=== PATIENT | male | born 1950 | race Caucasian/White ===

== ENCOUNTER 2016-09-07 12:03 | Emergency (ER) | payer MEDICARE, BC ==
[2016-09-07 12:27] VITALS: TEMP 97
--- NOTE | 2016-09-07 12:43 | RAD ---
EXAM DESCRIPTION: Abdomen Series CLINICAL HISTORY: 66 years, Male, epigastric pain 3 days COMPARISON: None. FINDINGS: Frontal view the chest shows slightly shallow inspiration. No consolidation. Borderline heart size. No free air under right hemidiaphragm. Nonspecific bowel gas without distention. Moderate stool mid colon. IMPRESSION: Nonspecific bowel gas pattern without findings of obstruction. Moderate stool in the mid colon Electronically signed by: Luís Lord MD 09/07/2016 12:42 PM CDT
[2016-09-07] MEDS ORDERED: MAGNESIUM SULFATE PREMIX 2GM 2 GM in PREMIX BAG 1 BAG IVPB ONE (12:57)
[2016-09-07] MEDS ORDERED: POTASSIUM CHLORIDE ELIXIR 20 MEQ/15 ML UD PO ONE (12:57)
[2016-09-07] MEDS ORDERED: MAGNESIUM SULFATE PREMIX 2GM 50 ML IVPB ONE (13:11)
--- NOTE | 2016-09-07 13:28 | ED.PDOC ---
History of Present Illness - General Chief Complaint: GI Problem Stated Complaint: "gallbladder pain" Time Seen by Provider: 09/07/16 12:21 Source: patient Exam Limitations: no limitations - History of Present Illness Initial Comments: the patient is a 66-year-old male presenting to the emergency room secondary to diffuse abdominal pain in the upper abdomen. No rebound or peritoneal signs. No nausea or vomiting. No diarrhea. No fever. No back pain. No syncope or near syncope. He has had constipation problems in the past. He is also recently had some mild hypokalemia. Severity: mild Improving Factors: nothing Worsening Factors: nothing Associated Symptoms: denies symptoms Allergies/Adverse Reactions: Allergies NO KNOWN ALLERGY Allergy (Unverified 09/07/16 12:19) Home Medications: Ambulatory Orders Azilsartan Medoxomil-Chlorthal [Edarbyclor] 1 tab PO DAILY 06/15/14 Esomeprazole Magnesium [Nexium] 40 mg PO DAILY 06/15/14 Glyburide 5 mg PO DAILY 06/15/14 Metoprolol Succinate [Toprol XL] 50 mg PO DAILY 06/15/14 Ramipril [Altace] 10 mg PO DAILY 06/15/14 Saxagliptin-Metformin HCl [Kombiglyze Xr] 1 tab PO BEDTIME 06/15/14 Simvastatin [Zocor] 80 mg PO BEDTIME 06/15/14 Review of Systems - Review of Systems Constitutional: States: no symptoms reported EENTM: States: no symptoms reported Respiratory: States: no symptoms reported Cardiology: States: no symptoms reported Gastrointestinal/Abdominal: States: see HPI Genitourinary: States: no symptoms reported Musculoskeletal: States: no symptoms reported Skin: States: no symptoms reported Neurological: States: no symptoms reported Endocrine: States: no symptoms reported All other Systems: No Change from Baseline Past Medical History (General) - Patient Medical History Hx Seizures: No Hx Stroke: No Hx Dementia: No Hx Asthma: No Hx of COPD: No Hx Cardiac Disorders: No Hx Congestive Heart Failure: No Hx Pacemaker: No Hx Hypertension: Yes Hx Thyroid Disease: No Hx Diabetes: Yes Hx Gastroesophageal Reflux: No Hx Renal Disease: No Hx Cancer: No Hx of HIV: No Hx Hepatitis C: No Hx MRSA: No Surgical History: no surgical history - Vaccination History Hx Tetanus, Diphtheria Vaccination: Yes Hx Influenza Vaccination: Yes Hx Pneumococcal Vaccination: Yes Immunizations Up to Date: Yes - Social History Hx Tobacco Use: No Hx Chewing Tobacco Use: No Hx Alcohol Use: No Hx Substance Use: No Hx Substance Use Treatment: No Hx Depression: No Feels Threatened In Home Enviroment: No Feels Threatened In a Relationship: No Hx Physical Abuse: No Hx Emotional Abuse: No Hx Suspected Abuse: No - Female History Patient is a Female of Child Bearing Age (10 -59 yrs old): No Patient : No Family Medical History - Family History Mother Family History: No Known Living Status: Unknown Physical Exam - Physical Exam General Appearance: Alert, Comfortable, No apparent distress Eye Exam: bilateral normal Ears, Nose, Throat: hearing grossly normal, normal ENT inspection, normal pharynx Neck: non-tender, full range of motion, supple Respiratory: chest non-tender, lungs clear, normal breath sounds, no respiratory distress, no accessory muscle use Cardiovascular/Chest: normal peripheral pulses, regular rate, rhythm, no edema Peripheral Pulses: radial,right: 2+, radial,left: 2+, dorsalis pedis,right: 2+, dorsalis pedis,left: 2+ Gastrointestinal/Abdominal: normal bowel sounds, non tender, soft Rectal Exam: deferred Back Exam: normal inspection, no CVA tenderness, no vertebral tenderness Extremity: normal range of motion, non-tender, normal inspection, no calf tenderness, normal capillary refill, pedal edema - trace to bilateral lower extremities Neurologic: want ad supervisor II-XII nml as tested, alert, normal mood/affect, oriented x 3 Skin Exam: normal color Comments: Laboratory Tests 09/07/16 09/07/16 09/07/16 12:25 12:25 12:25 WBC 11.7 H RBC 5.26 Hgb 15.1 Hct 44.1 MCV 83.8 MCH 28.6 MCHC 34.2 RDW 13.8 Plt Count 199 MPV 8.5 Absolute Neuts (auto) 7.60 H Absolute Lymphs (auto) 3.50 H Absolute Monos (auto) 0.50 Absolute Eos (auto) 0.10 Absolute Basos (auto) 0.10 Neutrophils % 64.6 Lymphocytes % 29.7 Monocytes % 4.5 Eosinophils % 0.6 L Basophils % 0.6 PT 12.3 INR 1.090 PTT (SP) 30.8 Sodium 135 Potassium 3.4 L Chloride 95 L Carbon Dioxide 29 Anion Gap 14.4 BUN 14 Creatinine 0.62 BUN/Creatinine Ratio 22.6 H Random Glucose 244 H Serum Osmolality 278.7 Calcium 9.0 Magnesium 1.5 L Total Bilirubin 0.9 AST 34 ALT 32 Alkaline Phosphatase 58 Creatine Kinase 67 CK-MB (CK-2) 1.1 CK-MB (CK-2) % Not Reportable Troponin I < 0.02 B-Natriuretic Peptide 21.0 Serum Total Protein 7.2 Albumin 3.8 Globulin 3.4 Albumin/Globulin Ratio 1.1 Amylase 37 Lipase 23 Urine Color Urine Appearance Urine pH Ur Specific [place] Urine Protein Urine Glucose (UA) Urine Ketones Urine Blood Urine Nitrite Urine Bilirubin Urine Urobilinogen Ur Leukocyte Esterase Urine RBC Urine WBC Ur Epithelial Cells Amorphous Sediment Urine Bacteria 09/07/16 12:35 WBC RBC Hgb Hct MCV MCH MCHC RDW Plt Count MPV Absolute Neuts (auto) Absolute Lymphs (auto) Absolute Monos (auto) Absolute Eos (auto) Absolute Basos (auto) Neutrophils % Lymphocytes % Monocytes % Eosinophils % Basophils % PT INR PTT (SP) Sodium Potassium Chloride Carbon Dioxide Anion Gap BUN Creatinine BUN/Creatinine Ratio Random Glucose Serum Osmolality Calcium Magnesium Total Bilirubin AST ALT Alkaline Phosphatase Creatine Kinase CK-MB (CK-2) CK-MB (CK-2) % Troponin I B-Natriuretic Peptide Serum Total Protein Albumin Globulin Albumin/Globulin Ratio Amylase Lipase Urine Color Yellow Urine Appearance Clear Urine pH 5.5 Ur Specific [place] 1.010 Urine Protein Negative Urine Glucose (UA) 100 H Urine Ketones Negative Urine Blood Negative Urine Nitrite Negative Urine Bilirubin Negative Urine Urobilinogen 0.2 Ur Leukocyte Esterase Negative Urine RBC 0 Urine WBC 0 Ur Epithelial Cells 0 Amorphous Sediment 1+ Urine Bacteria 0 acute abdominal series shows no acute pathology aside from some constipation Progress - Progress Progress: 09/07/16 13:28 the patient is a 66-year-old male presenting with several days of abdominal pain that appears to be most likely due to constipation. He needs to take a dose of milk of magnesia when he gets home tonight. He has some mild hypomagnesemia and received 2 g of magnesium here today. Additionally he has mild hypokalemia and received a dose of oral potassium here today. He needs to have these labs repeated in about 2 weeks. He needs to follow-up with his primary care doctor around that time. ER warnings were given for any worsening. He needs to increase his fluid intake. - Results/Orders Results/Orders: Vital Signs - 24 hr 09/07/16 09/07/16 12:19 13:23 Temperature 97 F L Pulse Rate [ 58 L 50 L Left Radial] Respiratory 18 18 Rate Blood Pressure 175/88 148/88 [Left Arm] O2 Sat by Pulse 99 Oximetry Departure - Departure Clinical Impression: Hypokalemia, Hypomagnesemia Constipation Qualifiers: Constipation type: unspecified constipation type Qualified Code(s): K59.00 - Constipation, unspecified Disposition: Discharge to Home or Self Care Condition: Fair Departure Forms: ED Discharge - Pt. Copy, Patient Portal Self Enrollment Instructions: DI for Constipation, DI for Hypokalemia Diet: diabetic diet Activity: increase activity as tolerated Referrals: Deshawn Bolton III, MD [Primary Care Provider] - 1-2 Weeks Home Medications: Ambulatory Orders Azilsartan Medoxomil-Chlorthal [Edarbyclor] 1 tab PO DAILY 06/15/14 Esomeprazole Magnesium [Nexium] 40 mg PO DAILY 06/15/14 Glyburide 5 mg PO DAILY 06/15/14 Metoprolol Succinate [Toprol XL] 50 mg PO DAILY 06/15/14 Ramipril [Altace] 10 mg PO DAILY 06/15/14 Saxagliptin-Metformin HCl [Kombiglyze Xr] 1 tab PO BEDTIME 06/15/14 Simvastatin [Zocor] 80 mg PO BEDTIME 06/15/14 Additional Instructions: the patient is a 66-year-old male presenting with several days of abdominal pain that appears to be most likely due to constipation. He needs to take a dose of milk of magnesia when he gets home tonight. He has some mild hypomagnesemia and received 2 g of magnesium here today. Additionally he has mild hypokalemia and received a dose of oral potassium here today. He needs to have these labs repeated in about 2 weeks. He needs to follow-up with his primary care doctor around that time. ER warnings were given for any worsening. He needs to increase his fluid intake. If hypokalemia persists, then he may need to discontinue one of his pressure medications.
[2016-09-07 14:13] VITALS: BP 150/76; O2SAT 96
== END 2016-09-07 14:13 | disposition home or self-care (01) ==
LOC: ER 12:03
DX: K59.00 Constipation, unspecified (principal); E87.6 Hypokalemia; E83.42 Hypomagnesemia; I10 Essential (primary) hypertension; E11.9 Type 2 diabetes mellitus without complications; Z79.899 Other long term (current) drug therapy
CPT/HCPCS: 36415; 74020; 80053; 81001; 82150; 82550; 82553; 83690; 83735; 83880; 84484; 85025; 85610; 85730; J3475

== ENCOUNTER → 2016-09-15 | Outpatient (CLI) | payer MEDICARE, BC | LOC: GMAL 10:39 | PROVIDERS: ATTEND Family Medicine | DX: E83.42 Hypomagnesemia (principal) ==

== ENCOUNTER → 2016-10-15 | Outpatient (CLI) | payer MEDICARE, BC | END | disposition home or self-care (01) | LOC: GMAL 10:43 | PROVIDERS: ATTEND Family Medicine | DX: E55.9 Vitamin D deficiency, unspecified (principal); E83.42 Hypomagnesemia ==

== ENCOUNTER → 2017-03-23 | Outpatient (CLI) | payer MEDICARE | END | disposition home or self-care (01) | LOC: GMAL 10:44 | PROVIDERS: ATTEND Family Medicine | DX: Z12.5 Encounter for screening for malignant neoplasm of prostate (principal); E55.9 Vitamin D deficiency, unspecified | CPT/HCPCS: 82306; G0103 ==

== ENCOUNTER → 2017-09-15 | Outpatient (CLI) | payer MEDICARE | LOC: GMAL 10:46 | PROVIDERS: ATTEND Family Medicine | DX: D51.3 Other dietary vitamin B12 deficiency anemia (principal); E83.42 Hypomagnesemia ==

== ENCOUNTER → 2017-11-16 | Outpatient (CLI) | payer MEDICARE | LOC: GMAL 14:14 | PROVIDERS: ATTEND Family Medicine | DX: E87.6 Hypokalemia (principal) ==

== ENCOUNTER → 2018-01-27 | Outpatient (CLI) | payer MEDICARE | LOC: GMAL 11:20 | PROVIDERS: ATTEND Family Medicine | DX: E83.42 Hypomagnesemia (principal) ==

== ENCOUNTER → 2018-05-18 | Outpatient (CLI) | payer MEDICARE | LOC: GMAL 10:45 | PROVIDERS: ATTEND Family Medicine | DX: Z12.5 Encounter for screening for malignant neoplasm of prostate (principal) ==

== ENCOUNTER 2019-10-05 17:18 | Emergency (ER) | payer MEDICARE ==
--- NOTE | 2019-10-05 17:59 | RAD ---
EXAM: XR Abdomen, 2 Views CLINICAL HISTORY: ruq pain, intermittent 3 days TECHNIQUE: Frontal view of the abdomen/pelvis with upright view of the abdomen. COMPARISON: No relevant prior studies available. FINDINGS: Intraperitoneal space: No free air. Gastrointestinal tract: Moderate diffuse colonic stool. No distention. Bones/joints: Degenerative changes present in the spine. IMPRESSION: No acute findings in the abdomen or pelvis. Electronically signed by: Selene Oden MD 10/05/2019 5:58 PM CDT
[2019-10-05] MEDS: SODIUM CHLORIDE 0.9% 1000ML 1,000 ML IVS ONE ×2 (18:07→18:44)
[2019-10-05] MEDS: ONDANSETRON ODT 8 MG TAB SL ONE (18:07)
[2019-10-05] MEDS: POTASSIUM CHLORIDE ELIXIR 20 MEQ/15 ML UD PO ONE ×2 (18:43→19:24)
[2019-10-05] MEDS: MAGNESIUM SULFATE PREMIX 4GM 4 GM in PREMIX BAG 1 BAG IVPB ONE (18:43)
--- NOTE | 2019-10-05 19:16 | CT ---
EXAM: Abdomen/Pelvis w/Contrast CLINICAL INDICATION: Abdominal pain. COMPARISON: There is no previous study for comparison. TECHNIQUE: The CT scan was done using contiguous axial 5 mm postcontrast sections through the abdomen and pelvis including IV contrast. This exam was performed according to our departmental dose-optimization program, which includes automated exposure control, adjustment of the mA and/or kV according to patient size and/or use of iterative reconstruction technique. FINDINGS: The visualized portion of the lung bases are clear. There is minimal fatty change in the liver without any focal hepatic abnormality. Gallstones are noted in the gallbladder. The kidneys, adrenal glands, spleen, and pancreas are unremarkable. The aorta is normal in caliber. There are no dilated loops of small bowel. The prostate gland is enlarged measuring 5.7 x 5.8 cm. Diverticulosis of the colon is noted without findings of acute diverticulitis. There is no free air, free fluid, or abscess. IMPRESSION: 1. No evidence of an acute intra-abdominal process. 2. Diverticulosis. 3. Cholelithiasis. Electronically signed by: Bjorn Longoria MD 10/05/2019 7:14 PM CDT
[2019-10-05 19:17] VITALS: O2SAT 98
--- NOTE | 2019-10-05 19:25 | ED.PDOC ---
History of Present Illness - General Chief Complaint: Abdominal Pain Stated Complaint: RUQ abdominal pain Time Seen by Provider: 10/05/19 17:23 Source: patient Exam Limitations: no limitations - History of Present Illness Initial Comments: The patient is a 69-year-old male presented emergency room secondary to 3 days of intermittent right abdominal pain. There is mild nausea but no vomiting. No diarrhea. In fact he does have chronic constipation issues. No fever. No sore throat or runny nose. He is pleasant and cooperative and does not appear to be in any acute distress. No real pain to palpation of the right upper quadrant. No palpable mass. He does have a history of chronically low potassium as well as low magnesium and chronic constipation. The patient does also report very significant whitecoat hypertension. Timing/Duration: other - 3 days Severity: moderate Improving Factors: nothing Worsening Factors: eating Associated Symptoms: malaise, nausea/vomiting Allergies/Adverse Reactions: Allergies NO KNOWN ALLERGY Allergy (Unverified 10/05/19 17:46) Home Medications: Ambulatory Orders Azilsartan Medoxomil-Chlorthal [Edarbyclor] 1 tab PO DAILY 06/15/14 Esomeprazole Magnesium [Nexium] 40 mg PO DAILY 06/15/14 Glyburide 5 mg PO DAILY 06/15/14 Metoprolol Succinate [Toprol XL] 50 mg PO DAILY 06/15/14 Ramipril [Altace] 10 mg PO DAILY 06/15/14 Saxagliptin-Metformin HCl [Kombiglyze Xr] 1 tab PO BEDTIME 06/15/14 Simvastatin [Zocor] 80 mg PO BEDTIME 06/15/14 Review of Systems - Review of Systems Constitutional: States: no symptoms reported EENTM: States: no symptoms reported Respiratory: States: no symptoms reported Cardiology: States: no symptoms reported Gastrointestinal/Abdominal: States: abdominal pain, constipation, nausea Genitourinary: States: no symptoms reported Musculoskeletal: States: no symptoms reported Skin: States: no symptoms reported Neurological: States: no symptoms reported Endocrine: States: no symptoms reported Hematologic/Lymphatic: States: no symptoms reported All other Systems: No Change from Baseline Past Medical History (General) - Patient Medical History Hx Seizures: No Hx Stroke: No Hx Dementia: No Hx Asthma: No Hx of COPD: No Hx Cardiac Disorders: No Hx Congestive Heart Failure: No Hx Pacemaker: No Hx Hypertension: Yes Hx Thyroid Disease: No Hx Diabetes: Yes Hx Gastroesophageal Reflux: No Hx Renal Disease: No Hx Cancer: No Hx of HIV: No Hx Hepatitis C: No Hx MRSA: No Surgical History: no surgical history - Vaccination History Hx Tetanus, Diphtheria Vaccination: Yes Hx Influenza Vaccination: Yes Hx Pneumococcal Vaccination: Yes - Social History Hx Tobacco Use: No Hx Chewing Tobacco Use: No Hx Alcohol Use: No Hx Substance Use: No Hx Substance Use Treatment: No Hx Depression: No Hx Physical Abuse: No Hx Emotional Abuse: No Hx Suspected Abuse: No - Activities of Daily Living Hospice Agency (if applicable):: None - Female History Patient : No Family Medical History - Family History Mother Family History: No Known Living Status: Unknown Physical Exam - Physical Exam General Appearance: Alert, Comfortable, No apparent distress Eye Exam: bilateral normal Ears, Nose, Throat: hearing grossly normal, normal ENT inspection Neck: full range of motion, supple Respiratory: lungs clear, normal breath sounds, no respiratory distress, no accessory muscle use Cardiovascular/Chest: normal peripheral pulses, regular rate, rhythm, no edema Peripheral Pulses: radial,right: 2+, radial,left: 2+ Gastrointestinal/Abdominal: non tender - Moderately obese, soft Rectal Exam: deferred Back Exam: no CVA tenderness Extremity: normal range of motion, no pedal edema, no calf tenderness, normal capillary refill Neurologic: recreation attendant supervisor II-XII nml as tested, alert, normal mood/affect, oriented x 3 Skin Exam: normal color Comments: Vital Signs - 24 hr 10/05/19 10/05/19 10/05/19 17:40 17:41 18:18 Temperature 99.6 F 99.4 F Pulse Rate [ 65 65 55 L brachial] Respiratory 16 16 16 Rate Blood Pressure 206/99 180/89 [Left Arm] O2 Sat by Pulse 97 96 Oximetry 10/05/19 19:00 Temperature 97.9 F Pulse Rate [ 53 L brachial] Respiratory 16 Rate Blood Pressure 183/79 [Left Arm] O2 Sat by Pulse 98 Oximetry Progress - Progress Progress: 10/05/19 19:26 The patient is a 69-year-old male presenting secondary to abdominal pain for the last several days. Work-up here, including CT scan, is reassuring. The patient does have constipation which may be contributing to the pain. He needs to take MiraLAX 17 g daily. He can take milk of magnesia but no more than 2-3 times per month. The patient does have some chronic hypomagnesemia and did receive a dose of IV magnesium here. He needs to resume his home oral magnesium supplement. Additionally the patient did have a significantly low potassium level which is the most likely cause of his abdominal cramping. The patient received 80 mEq of oral potassium here. He needs to resume his home oral potassium supplement. He needs to discuss with his primary care doctor stopping the diuretic tablet at least in the summer in order to help maintain his potassium levels. He needs to have another potassium level checked in 1 week. The patient is feeling better by time of discharge. ER warnings are given. ebony cortes [id number] - Results/Orders Results/Orders: CT scan of the abdomen pelvis shows no acute pathology. He does have some chronic gallbladder stones. He also has moderate constipation. See report for details. 2 view of the abdomen shows moderate constipation. Laboratory Tests 10/05/19 10/05/19 10/05/19 18:00 18:00 18:00 WBC 11.2 H RBC 5.14 Hgb 15.1 Hct 43.5 MCV 84.6 MCH 29.4 MCHC 34.8 RDW 13.8 Plt Count 242 MPV 8.0 Absolute Neuts (auto) 7.70 H Absolute Lymphs (auto) 2.80 Absolute Monos (auto) 0.70 Absolute Eos (auto) 0.10 Absolute Basos (auto) 0.10 Neutrophils % 68.2 Lymphocytes % 24.8 Monocytes % 5.8 Eosinophils % 0.6 L Basophils % 0.6 Sodium 136 Potassium 2.8 L Chloride 96 L Carbon Dioxide 31 Anion Gap 11.8 L BUN 11 Creatinine 0.63 BUN/Creatinine Ratio 17.5 Random Glucose 173 H Serum Osmolality 275.5 Lactic Acid 1.9 Calcium 9.1 Magnesium 1.6 L Total Bilirubin 0.9 AST 18 ALT 18 Alkaline Phosphatase 65 Creatine Kinase 69 CK-MB (CK-2) 1.6 CK-MB (CK-2) % Not Reportable Troponin I 0.02 Serum Total Protein 7.7 Albumin 3.9 Globulin 3.8 H Albumin/Globulin Ratio 1.0 L Amylase 43 Lipase 19 L Urine Color Urine Appearance Urine pH Ur Specific [place] Urine Protein Urine Glucose (UA) Urine Ketones Urine Blood Urine Nitrite Urine Bilirubin Urine Urobilinogen Ur Leukocyte Esterase Urine RBC Urine WBC Ur Epithelial Cells Urine Bacteria 10/05/19 19:03 WBC RBC Hgb Hct MCV MCH MCHC RDW Plt Count MPV Absolute Neuts (auto) Absolute Lymphs (auto) Absolute Monos (auto) Absolute Eos (auto) Absolute Basos (auto) Neutrophils % Lymphocytes % Monocytes % Eosinophils % Basophils % Sodium Potassium Chloride Carbon Dioxide Anion Gap BUN Creatinine BUN/Creatinine Ratio Random Glucose Serum Osmolality Lactic Acid Calcium Magnesium Total Bilirubin AST ALT Alkaline Phosphatase Creatine Kinase CK-MB (CK-2) CK-MB (CK-2) % Troponin I Serum Total Protein Albumin Globulin Albumin/Globulin Ratio Amylase Lipase Urine Color Yellow Urine Appearance Clear Urine pH 7.0 Ur Specific [place] 1.015 Urine Protein Negative Urine Glucose (UA) Negative Urine Ketones Negative Urine Blood Negative Urine Nitrite Negative Urine Bilirubin Negative Urine Urobilinogen 1.0 Ur Leukocyte Esterase Trace H Urine RBC 0 Urine WBC 0-1 Ur Epithelial Cells 0-1 Urine Bacteria 0 Departure - Departure Clinical Impression: Hypokalemia, Hypomagnesemia Constipation Qualifiers: Constipation type: drug induced constipation Qualified Code(s): K59.03 - Drug induced constipation Disposition: Discharge to Home or Self Care Condition: Fair Departure Forms: ED Discharge - Pt. Copy, Patient Portal Self Enrollment Instructions: Constipation, Adult (DC), Low Magnesium Level (DC), Hypokalemia (DC) Diet: other - High-fiber low-fat Activity: increase activity as tolerated Referrals: Deshawn Bolton III, MD [Primary Care Provider] - 1-2 Weeks Home Medications: Ambulatory Orders Azilsartan Medoxomil-Chlorthal [Edarbyclor] 1 tab PO DAILY 06/15/14 Esomeprazole Magnesium [Nexium] 40 mg PO DAILY 06/15/14 Glyburide 5 mg PO DAILY 06/15/14 Metoprolol Succinate [Toprol XL] 50 mg PO DAILY 06/15/14 Ramipril [Altace] 10 mg PO DAILY 06/15/14 Saxagliptin-Metformin HCl [Kombiglyze Xr] 1 tab PO BEDTIME 06/15/14 Simvastatin [Zocor] 80 mg PO BEDTIME 06/15/14 Additional Instructions: The patient is a 69-year-old male presenting secondary to abdominal pain for the last several days. Work-up here, including CT scan, is reassuring. The patient does have constipation which may be contributing to the pain. He needs to take MiraLAX 17 g daily. He can take milk of magnesia but no more than 2-3 times per month. The patient does have some chronic hypomagnesemia and did receive a dose of IV magnesium here. He needs to resume his home oral magnesium supplement. Additionally the patient did have a significantly low potassium level which is the most likely cause of his abdominal cramping. The patient received 80 mEq of oral potassium here. He needs to resume his home oral potassium supplement. He needs to discuss with his primary care doctor stopping the diuretic tablet at least in the summer in order to help maintain his potassium levels. He needs to have another potassium level checked in 1 week. The patient is feeling better by time of discharge. ER warnings are given.
[2019-10-05 20:27] VITALS: BP 173/76; TEMP 96.9
== END 2019-10-05 20:28 | disposition home or self-care (01) ==
LOC: ER 17:18
DX: E87.6 Hypokalemia (principal); E66.9 Obesity, unspecified; E83.42 Hypomagnesemia; R11.2 Nausea with vomiting, unspecified; K59.03 Drug induced constipation; I10 Essential (primary) hypertension
CPT/HCPCS: 74019; 74177; 80053; 81001; 82150; 82550; 82553; 83605; 83690; 83735; 84484; 85025; J3475; J7030

== ENCOUNTER 2020-02-13 09:09 | Emergency (ER) | payer MEDICARE ==
[2020-02-13 09:21] VITALS: TEMP 97.4
[2020-02-13] MEDS ORDERED: SODIUM CHLORIDE 0.9% (FLUSH) 10 ML SYG IV PRN (09:42)
[2020-02-13] MEDS ORDERED: SODIUM CHLORIDE 0.9% 1000ML 1,000 ML IVS ONE (09:42)
--- NOTE | 2020-02-13 10:30 | CT ---
Study: CT abdomen and pelvis. Indication: LUQ pain. Technique: CT of the abdomen and pelvis obtained without intravenous contrast. This exam was performed according to our departmental dose-optimization program, which includes automated exposure control, adjustment of the mA and/or kV according to patient size and/or use of iterative reconstruction technique. Comparison: October 05, 2019 none. Findings: Lung bases clear. Heart size upper limits of normal. Multiple tiny calcified gallstones. Hepatomegaly. Pancreas, spleen, adrenal glands unremarkable. Several millimetric nonobstructing bilateral renal calculi. No hydronephrosis. Mild nonspecific bilateral perinephric stranding. Prostatomegaly with mild mass effect on the bladder and mild bladder wall thickening, likely chronic bladder outlet obstruction. Stomach, small bowel, colon, and appendix unremarkable. No free fluid. No free air. Reactive size upper abdominal lymph nodes. Atherosclerotic aorta. Degenerative changes of the spine noted. Mild subcutaneous edema throughout the left anterior abdominal wall. Mild skin induration present as well. Impression: Several millimetric nonobstructing bilateral renal calculi. No hydronephrosis Cellulitis left anterior abdominal wall without drainable fluid collection. Cholelithiasis. Prostatomegaly with suspected chronic bladder outlet obstruction. Correlation with PSA recommended. Additional findings as above. Electronically signed by: Carmelo Palafox MD 02/13/2020 10:29 AM RN TRIAGE
[2020-02-13] MEDS ORDERED: CLINDAMYCIN IV 600MG 600 MG in PREMIX BAG 1 BAG IVPB ONE (11:08)
--- NOTE | 2020-02-13 11:09 | ED.PDOC ---
History of Present Illness - General Chief Complaint: Abdominal Pain Stated Complaint: abd pain Time Seen by Provider: 02/13/20 09:42 Information Source: patient, RN notes reviewed, Vital Signs reviewed Exam Limitations: no limitations - History of Present Illness Initial Comments: Patient is a 69-year-old white male who presents with complaints of worsening abdominal pain in the left upper quadrant over the last week. Patient denies any fever or chills. He does complain of a little bit of nausea. Patient denies any diarrhea. The pain is constant, throbbing, worsening, moderate in intensity. Mild radiation of pain toward the left flank and up toward the left chest wall. Abdominal Pain Onset Location: LUQ Pain Radiation: flank, chest Quality: moderate Timing/Duration: 1 week, constant, getting worse Improving Factors: nothing Worsening Factors: eating, movement Associated Symptoms: denies symptoms Review of Systems - Review of Systems Constitutional: States: no symptoms reported, see HPI. Denies: chills, fever, malaise, weakness EENTM: States: no symptoms reported. Denies: eye pain, blurred vision, double vision Respiratory: States: no symptoms reported. Denies: cough, short of breath, stridor, wheezing Cardiology: States: no symptoms reported. Denies: chest pain, palpitations, syncope Gastrointestinal/Abdominal: States: see HPI, abdominal pain, nausea. Denies: diarrhea, vomiting Genitourinary: States: no symptoms reported. Denies: dysuria, frequency Musculoskeletal: States: no symptoms reported. Denies: back pain, joint pain, neck pain Skin: States: no symptoms reported. Denies: change in color, rash Neurological: States: no symptoms reported. Denies: headache, numbness, tingling, tremors, weakness Endocrine: States: no symptoms reported. Denies: increased hunger, increased thirst, increased urine Hematologic/Lymphatic: States: no symptoms reported. Denies: blood clots, easy bleeding All other Systems: Reviewed and Negative, No Change from Baseline Past Medical History (General) - Patient Medical History Hx Seizures: No Hx Stroke: No Hx Dementia: No Hx Asthma: No Hx of COPD: No Hx Cardiac Disorders: No Hx Congestive Heart Failure: No Hx Pacemaker: No Hx Hypertension: Yes Hx Thyroid Disease: No Hx Diabetes: Yes Hx Gastroesophageal Reflux: No Hx Renal Disease: No Hx Cancer: No Hx of HIV: No Hx Hepatitis C: No Hx MRSA: No Surgical History: no surgical history - Vaccination History Hx Tetanus, Diphtheria Vaccination: Yes Hx Influenza Vaccination: Yes Hx Pneumococcal Vaccination: Yes - Social History Hx Tobacco Use: No Hx Chewing Tobacco Use: No Hx Alcohol Use: No Hx Substance Use: No Hx Substance Use Treatment: No Hx Depression: No Hx Physical Abuse: No Hx Emotional Abuse: No Hx Suspected Abuse: No - Female History Patient : No Family Medical History - Family History Mother Family History: No Known Living Status: Unknown Physical Exam - Physical Exam General Appearance: Alert, Anxious, No apparent distress, Obese, Well Developed, Well Groomed, Well Hydrated, Well Nourished Eyes, Ears, Nose, Throat Exam: PERRL/EOMI, normal ENT inspection, pharynx normal Neck: non-tender, full range of motion, supple, normal inspection Respiratory: chest non-tender, lungs clear, normal breath sounds, no respiratory distress, no accessory muscle use Cardiovascular/Chest: normal peripheral pulses, regular rate, rhythm, no edema, no gallop, no JVD, no murmur Peripheral Pulses: No deficit Gastrointestinal/Abdominal: normal bowel sounds, soft, tenderness - Left upper/mid quadrant. No peritoneal signs. 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 Lymphatic: no adenopathy Progress - Progress Progress: Differential diagnosis: Diverticulitis, bowel obstruction, UTI, pyelonephritis among others. 02/13/20 11:11 CT scan shows patient has abdominal wall cellulitis on the left upper quadrant. White count is 15,000. There is a left shift. Patient's vital signs are stable here and he has had no fever. Plan IV IV antibiotics and discharge home with p.o. antibiotics. I discussed this plan of care with the patient and he voices understanding and agreement with plan of care. Heath Graves M.D. #[id number] - Results/Orders Results/Orders: Laboratory Tests 02/13/20 02/13/20 02/13/20 09:33 09:43 09:43 WBC 15.7 H RBC 5.07 Hgb 15.4 Hct 43.2 MCV 85.1 MCH 30.4 MCHC 35.7 RDW 13.7 Plt Count 256 MPV 8.4 Absolute Neuts (auto) 10.10 H Absolute Lymphs (auto) 4.40 H Absolute Monos (auto) 0.90 H Absolute Eos (auto) 0.10 Absolute Basos (auto) 0.10 Neutrophils % 64.4 Lymphocytes % 28.2 Monocytes % 6.0 Eosinophils % 0.8 L Basophils % 0.6 Sodium 136 Potassium 3.0 L Chloride 94 L Carbon Dioxide 30 Anion Gap 15.0 BUN 12 Creatinine 0.76 BUN/Creatinine Ratio 15.8 Random Glucose 175 H Serum Osmolality 276.0 Calcium 9.1 Total Bilirubin 1.0 Direct Bilirubin 0.1 Indirect Bilirubin 0.9 H AST 26 ALT 32 Alkaline Phosphatase 62 Serum Total Protein 7.3 Albumin 3.9 Lipase 22 Urine Color Yellow Urine Appearance Clear Urine pH 8.5 H Ur Specific [place] 1.020 Urine Protein Negative Urine Glucose (UA) Negative Urine Ketones Negative Urine Blood Negative Urine Nitrite Negative Urine Bilirubin Negative Urine Urobilinogen 1.0 Ur Leukocyte Esterase Negative Urine RBC 0 Urine WBC 1-3 Ur Epithelial Cells 0 Urine Bacteria 0 Study: CT abdomen and pelvis. Indication: LUQ pain. Technique: CT of the abdomen and pelvis obtained without intravenous contrast. This exam was performed according to our departmental dose-optimization program, which includes automated exposure control, adjustment of the mA and/or kV according to patient size and/or use of iterative reconstruction technique. Comparison: October 05, 2019 none. Findings: Lung bases clear. Heart size upper limits of normal. Multiple tiny calcified gallstones. Hepatomegaly. Pancreas, spleen, adrenal glands unremarkable. Several millimetric nonobstructing bilateral renal calculi. No hydronephrosis. Mild nonspecific bilateral perinephric stranding. Prostatomegaly with mild mass effect on the bladder and mild bladder wall thickening, likely chronic bladder outlet obstruction. Stomach, small bowel, colon, and appendix unremarkable. No free fluid. No free air. Reactive size upper abdominal lymph nodes. Atherosclerotic aorta. Degenerative changes of the spine noted. Mild subcutaneous edema throughout the left anterior abdominal wall. Mild skin induration present as well. Impression: Several millimetric nonobstructing bilateral renal calculi. No hydronephrosis Cellulitis left anterior abdominal wall without drainable fluid collection. Cholelithiasis. Prostatomegaly with suspected chronic bladder outlet obstruction. Correlation with PSA recommended. Additional findings as above. Electronically signed by: Carmelo Palafox MD 02/13/2020 10:29 AM EKG performed on 13 February 2020 at 1014 hrs.: Sinus bradycardia with marked sinus arrhythmia at 56 bpm, normal axis deviation, no ST or T wave changes concerning for ischemia, otherwise normal EKG. No comparison EKG available at this time. Vital Signs 02/13/20 02/13/20 09:17 11:10 Temperature 97.4 F L Pulse Rate [ 66 48 L monitor] Respiratory 20 18 Rate Blood Pressure 120/68 148/74 [ra] O2 Sat by Pulse 98 97 Oximetry Departure - Departure Clinical Impression: Cellulitis of left abdominal wall Leukocytosis Qualifiers: Leukocytosis type: unspecified Qualified Code(s): D72.829 - Elevated white blood cell count, unspecified Abdominal pain Qualifiers: Abdominal location: left upper quadrant Qualified Code(s): R10.12 - Left upper quadrant pain Time of Disposition: 11:23 Disposition: Discharge to Home or Self Care Condition: Good Departure Forms: ED Discharge - Pt. Copy, Patient Portal Self Enrollment Instructions: DI for Abdominal Pain-Adult, Cellulitis (Skin Infection), Adult (DC) Diet: resume usual diet Activity: increase activity as tolerated Referrals: Deshawn Bolton III, MD [Primary Care Provider] - 1-5 Days Prescriptions: Clindamycin HCl [Clindamycin Hydrochloride] 300 mg PO Q6H #40 cap Home Medications: Ambulatory Orders Azilsartan Medoxomil-Chlorthal [Edarbyclor] 1 tab PO DAILY 06/15/14 Esomeprazole Magnesium [Nexium] 40 mg PO DAILY 06/15/14 Glyburide 5 mg PO DAILY 06/15/14 Metoprolol Succinate [Toprol XL] 50 mg PO DAILY 06/15/14 Ramipril [Altace] 10 mg PO DAILY 06/15/14 Saxagliptin-Metformin HCl [Kombiglyze Xr] 1 tab PO BEDTIME 06/15/14 Simvastatin [Zocor] 80 mg PO BEDTIME 06/15/14 Clindamycin HCl [Clindamycin Hydrochloride] 300 mg PO Q6H #40 cap 02/13/20 Comments: Pt to start Probiotics and take them for the next 3 weeks. 1 pill daily.
[2020-02-13 11:10] VITALS: O2SAT 97
[2020-02-13 11:59] VITALS: BP 146/74
== END 2020-02-13 12:00 | disposition home or self-care (01) ==
LOC: ER 09:09
DX: R10.12 Left upper quadrant pain (principal); D72.829 Elevated white blood cell count, unspecified; R00.1 Bradycardia, unspecified; K80.20 Calculus of gallbladder without cholecystitis without obstruction; N40.0 Benign prostatic hyperplasia without lower urinary tract symptoms; R11.0 Nausea; E11.9 Type 2 diabetes mellitus without complications; I10 Essential (primary) hypertension
CPT/HCPCS: 36415; 74176; 80048; 80076; 81001; 83690; 85025; 93005; J3490; J7030